=== PATIENT | male | born 1975 | race Caucasian/White ===

== ENCOUNTER 2016-07-28 23:18 | Emergency (ER) | payer MEDICAID ==
[2016-07-28 23:35] VITALS: BP 142/90
== END 2016-07-29 00:48 | disposition home or self-care (01) ==
LOC: ED 23:18
DX: G51.0 Bell's palsy (principal)

== ENCOUNTER 2016-08-10 18:21 | Emergency (ER) | payer MEDICAID ==
[2016-08-10 20:30] VITALS: BP 128/78
== END 2016-08-10 20:30 | disposition home or self-care (01) ==
LOC: ED 18:21
DX: G51.0 Bell's palsy (principal)